=== PATIENT | male | born 1975 | race Two or more races ===

== ENCOUNTER 2017-01-22 04:48 | Emergency (ER) | payer OTHER ==
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
[2017-01-22 07:28] VITALS: BP 125/67
== END 2017-01-22 07:10 | disposition home or self-care (01) ==
LOC: ER 04:48
DX: M25.512 Pain in left shoulder (principal); M25.531 Pain in right wrist; M79.641 Pain in right hand; V86.99XA Unspecified occupant of other special all-terrain or other off-road motor vehicle injured in nontraffic accident, initial encounter
CPT/HCPCS: 99283